=== PATIENT | male | born 2000 | race African-American/Black ===

== ENCOUNTER 2023-01-15 19:45 | Emergency (ER) | payer OTHER ==
[~2023-01-15] VITALS: Ht 188 cm; Wt 99.5 kg
[2023-01-15 19:46] VITALS: BP 133/74; TEMP 98.9; O2SAT 99
[2023-01-15] MEDS ORDERED: NASA1SPR NARES (21:52)
[2023-01-15] MEDS ORDERED: TERB1CRE2 TOP (21:52)
[2023-01-15] MEDS ORDERED: OLOP2.5D3 OP (21:52)
[2023-01-15] MEDS ORDERED: LORA10TA3 PO (21:52)
== END 2023-01-15 22:26 | disposition home or self-care (01) ==
LOC: M ED 19:45
DX: H10.33 Unspecified acute conjunctivitis, bilateral (principal); J30.9 Allergic rhinitis, unspecified; F17.290 Nicotine dependence, other tobacco product, uncomplicated; Z79.899 Other long term (current) drug therapy